=== PATIENT | female | born 1975 | race Caucasian/White ===

== ENCOUNTER 2018-12-05 01:32 | Inpatient (IN) | payer MEDICAID ==
[~2018-12-05] VITALS: Ht 165.1 cm; Wt 115.7 kg
--- NOTE | 2018-12-05 01:44 | NUR ---
Patient being evaluated by physician at bedside.
[2018-12-05] MEDS ORDERED: NACL 0.9% 2,000 ML IV SCH (01:47)
[2018-12-05 01:51] VITALS: BP 145/85
[2018-12-05] MEDS ORDERED: VANCOMYCIN 1,000 MG in DEXTROSE 5% 250 ML IV ONE (02:00)
[2018-12-05 02:05] LABS: HEMATOCRIT 38.4 % (36-48); HEMOGLOBIN 12.7 g/dL (12.0-16.0); MEAN CORPUSCULAR HEMOGLOBIN 26 pg (27-31); MEAN CORPUSCULAR HGB CONC 33 g/dL (33-37); MEAN CORPUSCULAR VOLUME 79.5 fL (80-94); PLATELET COUNT (AUTO) 423 K/uL (140-450); RED BLOOD CELL COUNT(AUTO) 4.83 MIL/uL (4.20-5.40); RED CELL DISTRIBUTION WIDTH 14.3 % (11.6-13.7)
[2018-12-05 02:18] LABS: EOSINOPHILS % (MANUAL) 1 % (0-4); LYMPHOCYTES % (MANUAL) 9 % (20-46); MONOCYTES % (MANUAL) 4 % (5-12); WHITE BLOOD COUNT (AUTO) 19.6 K/uL (4.8-10.8)
[2018-12-05] MEDS ORDERED: VANCOMYCIN 1,000 MG VIAL ONE ×2 (02:18→04:57)
[2018-12-05 02:24] LABS: PROTHROMBIN TIME 10.2 secs (10.8-13.4)
--- NOTE | 2018-12-05 02:24 | NUR ---
PT TO ED WITH C/O L SIDED FACIAL PAIN/TINGLING. PT DENIES INJURY OR TRAUMA. LARGE AMOUNT OF SWELLING NOTED TO L SIDE OF FACE. PT DENIES CP/SOB. PT PLACED INTO BED, PENDING MD GARY.
[2018-12-05 02:32] LABS: ALBUMIN 3.2 g/dL (3.4-5.0); ANION GAP 14.4 (8-16); CARBON DIOXIDE 24.8 mmol/L (21-32); POTASSIUM 3.2 mmol/L (3.5-5.1); TOTAL BILIRUBIN 0.8 mg/dL (0.0-1.0)
[2018-12-05] MEDS ORDERED: NACL 0.9% 1,000 ML IV SCH (02:52)
[2018-12-05] MEDS ORDERED: KETOROLAC 30 MG/ML VIAL IVP ONE (02:55)
[2018-12-05] MEDS ORDERED: MORPHINE SULFATE 2 MG/ML SYR IVP PRN (02:55)
[2018-12-05] MEDS ORDERED: ONDANSETRON 4 MG/2 ML VIAL IM/IVP PRN (02:55)
[2018-12-05] MEDS ORDERED: HYDROcodone/APAP 7.5/325 MG 1 TAB PO PRN (02:55)
[2018-12-05] MEDS ORDERED: DOCUSATE SODIUM 100 MG GELCAP PO PRN (02:55)
--- NOTE | 2018-12-05 03:23 | NUR ---
PT BACK FROM CT
[2018-12-05 03:24] LABS: CHOL/HDL RATIO 3.4 (1-4.5); MAGNESIUM 1.8 mg/dL (1.8-2.4); PHOSPHORUS 2.4 mg/dL (2.5-4.9); THYROID STIMULATING HORMONE 0.94 uIU/mL (0.34-3.74)
--- NOTE | 2018-12-05 03:33 | NUR ---
PT WAS UNABLE TO URINATE DUE TO URINATING PRIOR TO ER VISIT. RN TO GIVE REPORT TO ENTRY LEVEL ADMINISTRATIVE ASSISTANT TO COLLECT ON UNIT. ER MD MADE AWARE
[2018-12-05] MEDS ORDERED: VANCOMYCIN PER PHARMACY MC PRN (03:35)
--- NOTE | 2018-12-05 03:37 | NUR ---
Patient will be admitted to care of DR TENA. Admited to TELE. Will go to room 106-A. Belongings list completed. Report to ROBERT KRAUSE.
[2018-12-05 03:45] VITALS: BP 156/88
[2018-12-05] MEDS ORDERED: KCL 20 MEQ/WATER INJ PREMIX 100 ML IV SCH (03:45)
--- NOTE | 2018-12-05 03:45 | NUR ---
REPORT RECEIVED FROM ED NURSE AT BEDSIDE. PT IN STABLE CONDITION. AAOX4. INTRODUCED SELF TO PT AND FAMILY. BOARD UPDATED. NO COMPLAINTS OF PAIN. NO SOB. AFEBRILE. IV SITE L AC 20G RUNNING D5NS@120ML/HR PATENT AND INTACT. SKIN WARM, DRY, AND INTACT WITH NO OPEN WOUNDS. PT IS AMBULATORY. BED LOCKED IN LOW POSITION. CALL OSEGUERA WITHIN REACH. SAFETY PRECAUTIONS IN PLACE. ALL NEEDS MET AT THIS TIME.
[2018-12-05] MEDS ORDERED: KETOROLAC 15 MG/ML VIAL IVP PRN (04:10)
[2018-12-05] MEDS: DEXT 5% /NACL 0.9% 1,000 ML IV SCH ×2 (04:22→11:55)
[2018-12-05] MEDS ORDERED: VANCOMYCIN HCL 750 MG in DEXTROSE 5% 250 ML IV SCH (04:30)
--- NOTE | 2018-12-05 04:56 | NUR ---
ERVIN RHODES AND RUNNING. PT TOLERATING WELL.
--- NOTE | 2018-12-05 05:15 | NUR ---
RADIOLOGY CALLED IN TO INFORM ME THAT THE CXR IS NEGATIVE.
--- NOTE | 2018-12-05 06:26 | NUR ---
MJ RHODES AND RUNNING. PT TOLERATING WELL.
[2018-12-05] MEDS ORDERED: cefTRIAXone 1,000 MG VIAL ONE (06:32)
[2018-12-05] MEDS ORDERED: POTASSIUM CHLORIDE 40 MEQ, LIDOCAINE MPF 1% - 5 mL VIAL 25 MG in NACL 0.9% 250 ML IV ONE (07:00)
--- NOTE | 2018-12-05 07:20 | NUR ---
REPORT GIVEN TO AM NURSE AT BEDSIDE. PT IN STABLE CONDITION.
--- NOTE | 2018-12-05 07:25 | NUR ---
RECEIVED PT FROM PLODDING OPERATOR NURSEJIMI, PT IS AWAKE AND ALERT AND IS LYING ON THE BED WITH SIDE RAILS UP AND CALL LIGHT WITHIN REACH, PT IS NOT A FALL RISK, BED ALARM CHECKED, PT HAS AN IV LINE ON THE LEFT AC G.20 WITH D5NS INFUSING AT 120ML/HR, INTACT. PT HAS A LEFT FACIAL ABSCESS NOTED, SKIN WAS ASSESSED, TENDER, WARM AND RED, PT DENIES ANY PAIN AT THIS TIME AND NO SOB NOTED. WILL CONTINUE TO MONITOR PT.
[2018-12-05 08:00] VITALS: BP 151/89
--- NOTE | 2018-12-05 08:00 | NUR ---
PATIENT HAS BEEN SCREENED AND CATEGORIZED HIGH NUTRITION RISK. PATIENT WILL BE SEEN WITHIN 1-2 DAYS OF ADMISSION. 12/05/18-12/06/[address]
--- NOTE | 2018-12-05 08:10 | NUR ---
PT IS AWAKE AND SEATED ON THE BED, VITAL SIGNS CHECKED AND IS WITHIN NORMAL LIMIT, TEMPERATURE IS 98.8 AND SHOWS NO FEVER. NO SIGN OF DISTRESS NOTED AND WILL CONTINUE TO MONITOR PT.
[2018-12-05] MEDS: LACTOBACILLUS RHAMNOSUS GG 1 EACH CAP PO SCH (08:52)
--- NOTE | 2018-12-05 08:55 | NUR ---
PT IS AWAKE, SEATED ON THE BED WITH FATHER ON THE BEDSIDE, PT'S K LEVEL IS 3.2 AND POTASSIUM RIDER WAS GIVEN VIA IVPB. WILL MONITOR PT.
[2018-12-05 10:10] LABS: APPEARANCE,URINE CLEAR (CLEAR); BILIRUBIN,URINE NEGATIVE (NEGATIVE); BLOOD, URINE 1+ (NEGATIVE); COLOR,URINE YELLOW (YELLOW); LEUKOCYTE ESTERASE ,URINE NEGATIVE (NEGATIVE); NITRITE, URINE NEGATIVE (NEGATIVE); PH,URINE 6.5 (5.0-9.0); UGLUCOSE NEGATIVE (NEGATIVE)
--- NOTE | 2018-12-05 10:15 | NUR ---
PT IS AWAKE AND SEATED ON THE BED WATCHING TV, FATHER ON THE BEDSIDE, PT DENIES PAIN AND NO SIGN OF DISTRESS NOTED. WILL MONITOR PT.
[2018-12-05 10:18] LABS: BARBITURATE, URINE NEG. ng/ml (NEG <=200); BENZODIAZEPINE, URINE NEG. ng/mL (NEG <=200); CANNABINOID, URINE NEG. ng/mL (NEG <=50); COCAINE, URINE NEG. ng/mL (NEG <=300); OPIATE, URINE NEG. ng/mL (NEG <=2000); PHENCYCLIDINE SCREEN,URINE NEG. ng/mL (NEG <=25)
[2018-12-05 10:37] LABS: RBC,URINE 0-5 /HPF (0-5); WBC,URINE 0-5 /HPF (0-5)
--- NOTE | 2018-12-05 10:55 | NUR ---
CONSENT FOR CT OF THE NECK WITH CONTRAST WAS SIGNED BY PT AND WITNESSED BY RN. PT IS AWARE OF THE PROCEDURE TO BE DONE AND THE REASON FOR IT. WILL AFFIX SIGNATURE.
[2018-12-05 12:00] VITALS: BP 130/82
[2018-12-05] MEDS: VANCOMYCIN HCL 1,250 MG in DEXTROSE 5% 250 ML IV SCH ×2 (13:12→21:09)
--- NOTE | 2018-12-05 13:12 | NUR ---
PT IS AWAKE AND ALERT AND SEATED ON THE BED, MEDICATION WAS GIVEN VIA IVPB AND PT TOLERATED IT. WILL MONITOR PT.
--- NOTE | 2018-12-05 15:55 | NUR ---
12/05/18 RD INITIAL ASSESSMENT COMPLETED PLEASE REFER TO NUTRITION ASSESSMENT UNDER CARE ACTIVITY FOR ESTIMATED NUTRITIONAL NEEDS. 1. CONTINUE NPO MEDICALLY NECESSARY 2. WHEN PATIENT IS MEDICALLY STABLE CONSIDER ADVANCING TO A SOFT CARDIAC DIET 3. RD PROVIDED LOWERING CHOLESTEROL NUTRITION EDUCATION. PT ACCEPTED 4. RD TO FOLLOW-UP 3-5 DAYS, MODERATE RISK CHERRIE NOONAN RD
[2018-12-05 16:00] VITALS: BP 122/60
--- NOTE | 2018-12-05 16:15 | NUR ---
PT IS AWAKE AND SEATED ON THE BED, WATCHING TV, VITAL SIGNS TAKEN AND BP IS 122/60, PT PULSE IS TACHYCARDIC AT A RATE OF 140, RESPIRATION IS 18/MIN, TEMP IS 100.1 ON ORAL AND O2 SATURATION AT 99% PT DENIES PAIN AND VERBALIZED NOT FEELING WARM OR HAVING A FEVER AT THIS TIME. WILL MONITOR PT.
[2018-12-05] MEDS ORDERED: POTASSIUM CHLORIDE 10 MEQ TABER PO SCH (17:30)
[2018-12-05] MEDS ORDERED: SODIUM PHOS / POTASSIUM PHOS 1 PKT PDR PO SCH (17:30)
--- NOTE | 2018-12-05 18:00 | NUR ---
SPOKE TO DR. KAUFMAN AND ASKED MD IF PT WILL BE KEPT NPO AND DR. KAUFMAN SAID THAT SHE WILL PLACE AN ORDER FOR A DIET FOR THE PT AND CALLED THE MD ATTENTION ABOUT THE ORDER OF 40MEQ K-DUR FOR THE PT SCHEDULED FOR 1729 AND TOLD THE MD THAT PT WAS GIVEN K- RIDER EARLIER VIA IVPB, DR. KAUFMAN SAID TO NOT GIVE THE K-DUR TABLETS AND SHE WILL CANCEL THE ORDER. ACKNOWLEDGED AND WILL CARRY OUT ORDER.
--- NOTE | 2018-12-05 18:31 | NUR ---
PT IS AWAKE AND DINNER TRAY WAS SERVED, ORAL MEDICATION WAS GIVEN AND PT TOLERATED IT, NO SIGN OF DISTRESS NOTED AND WILL CONTINUE TO MONITOR PT.
[2018-12-05] MEDS ORDERED: INSULIN LISPRO SLIDING SCALE 100 UNITS/ML VIAL SUBQ PRN (18:50)
[2018-12-05] MEDS ORDERED: DEXTROSE 50% 50 ML SYR IVP PRN (18:50)
--- NOTE | 2018-12-05 19:00 | NUR ---
PT'S HEART RATE IS 142 IN THE RISK MANAGEMENT DIRECTOR, WENT TO PT'S ROOM AND PT IS SEATED ON THE BED WATCHING TV, PT DENIES ANY UNTOWARD SYMPTOM, DENIES SOS AND DENIES PAIN, INFORMED DR. ESPITIA ABOUT IT AND MD SAID THAT HE WILL PLACE AN ORDER FOR EKG.
--- NOTE | 2018-12-05 19:15 | NUR ---
ENDORSED PT TO SPONGE PRESS OPERATOR NURSEJASE FOR CONTINUITY OF CARE. PT IS STABLE AT THIS TIME.
--- NOTE | 2018-12-05 19:16 | NUR ---
RECEIVED BEDSIDE REPORT FROM GIFTY JONES. PT IS AAO X 4. FATHER AT BEDSIDE. PT ON ROOM AIR. NO S/S OF DISTRESS. DX FACIAL ABSCESS. LEFT CHEEK VISUALLY SWOLLEN AND RED EXTENDED TO NECK. PT STATES SHE HAD AN EAR INFECTION THEN STARTED TO HAVE PAIN IN CHEEK. PT IS AMBULATORY STEADY GAIT. IV ON LAC 20G IVF D5NS AT 120 INFUSING WELL. PT TO BE NPO AFTER MIDNIGHT FOR POSSIBLE I&D. PLAN OF CARE DISCUSSED. PT VERBALIZED UNDERSTANDING. CALL LIGHT WITHIN REACH.
[2018-12-05 20:00] VITALS: BP 135/79
[2018-12-05 20:33] LABS: BASOPHILS % (AUTO) 0.2 % (0.0-2.0); HEMATOCRIT 34.3 % (36-48); HEMOGLOBIN 11.2 g/dL (12.0-16.0); LYMPHOCYTES # (AUTO) 1.1 K/uL (2.5-16.5); MEAN CORPUSCULAR HEMOGLOBIN 26 pg (27-31); MEAN CORPUSCULAR HGB CONC 33 g/dL (33-37); MEAN CORPUSCULAR VOLUME 80.1 fL (80-94); MONOCYTES # (AUTO) 1.2 K/uL (0.8-1.0); MONOCYTES % (AUTO) 7.6 % (1.7-9.3); NEUTROPHILS # (AUTO) 13.9 K/uL (1.8-7.7); NEUTROPHILS % (AUTO) 85.2 % (42.2-75.2); PLATELET COUNT (AUTO) 344 K/uL (140-450); RED BLOOD CELL COUNT(AUTO) 4.28 MIL/uL (4.20-5.40); WHITE BLOOD COUNT (AUTO) 16.3 K/uL (4.8-10.8)
--- NOTE | 2018-12-05 20:40 | NUR ---
LAB UNABLE TO VERIFY MEFOXIN D/T PT ALLERGY TO PCN. DR ESPITIA MADE AWARE. NO NEW ORDERS.
[2018-12-05 20:53] LABS: ANION GAP 14.5 (8-16); CARBON DIOXIDE 23.3 mmol/L (21-32); CREATININE 0.8 mg/dL (0.6-1.3); POTASSIUM 3.8 mmol/L (3.5-5.1)
[2018-12-05] MEDS: BLOOD GLUCOSE MONITORING 1 DEV DEV FS SCH (21:08)
--- NOTE | 2018-12-05 21:09 | NUR ---
VITAL SIGNS ARE STABLE PT ST 138 B/P 135/79. DR IS AWARE. PT DENIES PAIN AT THIS TIME. DUE MEDICATION GIVEN. BLOOD SUGAR 156. PT STATES NON DIABETIC. WILL NOT GIVE INSULIN PT TO BE NPO AFTER MIDNIGHT. WILL RECHECK BLOOD SUGAR IN THE MORNING. ALL NEEDS MET AT HIS TIME. WILL CONTINUE TO MONITOR.
[2018-12-06] VITALS: BP 141/81
[2018-12-06] MEDS: ACETAMINOPHEN 325 MG TAB PO PRN ×3 (00:41→21:30)
[2018-12-06] MEDS: DEXT 5% /NACL 0.9% 1,000 ML IV SCH ×3 (00:41→12:55)
--- NOTE | 2018-12-06 00:41 | NUR ---
PT WITH TEMP 100.8 TYLENOL ADMINISTERED. PT REMAINS ST. HEART RATE 135 SHE IS ASYMPTOMATIC. B/P 141/81. CALL LIGHT WITHIN REACH. WILL CONTINUE TO MONITOR
[2018-12-06 04:00] VITALS: BP 113/56
--- NOTE | 2018-12-06 04:05 | NUR ---
VITAL SIGNS ARE STABLE. PT HEART RATE 125 IS ASYMPTOMATIC. VANCO TROUGH DRAWN. CALL LIGHT WITHIN REACH.
[2018-12-06 04:30] LABS: ANION GAP 14.4 (8-16); CARBON DIOXIDE 25.1 mmol/L (21-32); CREATININE 0.8 mg/dL (0.6-1.3); POTASSIUM 3.5 mmol/L (3.5-5.1)
[2018-12-06 04:33] LABS: MAGNESIUM 1.7 mg/dL (1.8-2.4); PHOSPHORUS 3.4 mg/dL (2.5-4.9)
[2018-12-06] MEDS: VANCOMYCIN HCL 1,250 MG in DEXTROSE 5% 250 ML IV SCH ×3 (04:58→21:22)
--- NOTE | 2018-12-06 04:58 | NUR ---
PT RESTING COMFORTABLY IN BED. VANCO INFUSING PER ORDERS. VANCO TROUGH WAS 9.6. ALL NEEDS MET AT THIS TIME WILL CONTINUE TO MONITOR.
[2018-12-06] MEDS: BLOOD GLUCOSE MONITORING 1 DEV DEV FS SCH ×4 (05:07→21:41)
[2018-12-06 06:34] LABS: BASOPHILS # (AUTO) 0.1 K/uL (0.00-0.22); BASOPHILS % (AUTO) 0.4 % (0.0-2.0); EOSINOPHILS % (AUTO) 0.1 % (0.0-4.0); HEMATOCRIT 33.6 % (36-48); HEMOGLOBIN 10.9 g/dL (12.0-16.0); LYMPHOCYTES # (AUTO) 1.9 K/uL (2.5-16.5); LYMPHOCYTES % (AUTO) 11.5 % (20.5-51.1); MEAN CORPUSCULAR HEMOGLOBIN 26 pg (27-31); MEAN CORPUSCULAR HGB CONC 32 g/dL (33-37); MEAN CORPUSCULAR VOLUME 80.4 fL (80-94); MONOCYTES # (AUTO) 1.3 K/uL (0.8-1.0); MONOCYTES % (AUTO) 7.6 % (1.7-9.3); NEUTROPHILS # (AUTO) 13.3 K/uL (1.8-7.7); NEUTROPHILS % (AUTO) 80.4 % (42.2-75.2); PLATELET COUNT (AUTO) 334 K/uL (140-450); RED BLOOD CELL COUNT(AUTO) 4.18 MIL/uL (4.20-5.40); RED CELL DISTRIBUTION WIDTH 13.9 % (11.6-13.7); WHITE BLOOD COUNT (AUTO) 16.5 K/uL (4.8-10.8)
--- NOTE | 2018-12-06 07:22 | NUR ---
GAVE BEDSIDE REPORT TO DAY SHIFT RN. PT ENDORSED IN STABLE CONDITION.
--- NOTE | 2018-12-06 07:23 | NUR ---
RECEIVED BEDSIDE REPORT FROM ROBERT CLINE. PATIENT ON TELE MONITOR AND STANDARD PRECAUTIONS IN PLACE PATIENT AAOX4. PATIENT ON ROOM AIR, NO DISTRESS NOTED. AMBULATORY AND CONTINENT. IV ON L AC 20 G INFUSING D5 NS AT 120, IV ASYMPTOMATIC PATENT AND INTACT. SKIN INTACT. BED IN LOW POSITION, CALL LIGHT WITHIN REACH, SIDE RAILS X 2 UP. WILL CONTINUE TO MONITOR.
[2018-12-06 08:00] VITALS: BP 161/90
[2018-12-06] MEDS: LACTOBACILLUS RHAMNOSUS GG 1 EACH CAP PO SCH (08:19)
--- NOTE | 2018-12-06 08:22 | NUR ---
FATHER AT BEDSIDE. ADMINISTERED SCHEDULED MEDS. WILL CONTINUE TO MONITOR.
--- NOTE | 2018-12-06 10:00 | NUR ---
PATIENT WATCHING TV. NO DISTRESS NOTED, ON ROOM AIR. WILL CONTINUE TO MONITOR.
[2018-12-06 12:00] VITALS: BP 144/86
--- NOTE | 2018-12-06 12:49 | NUR ---
ADMINISTERED SCHEDULED MEDS. PATIENT TOLERATED WELL. WILL CONTINUE TO MONITOR.
--- NOTE | 2018-12-06 13:00 | NUR ---
L AC 20 G IV LEAKING. REMOVED IV. WILL ATTEMPT ANOTHER IV.
--- NOTE | 2018-12-06 13:44 | NUR ---
NEW IV ON R HAND 22 G, ASYMPTOMATIC PATENT AND INTACT
[2018-12-06] MEDS ORDERED: NACL 0.45% 1,000 ML IV SCH ×2 (14:35→18:45)
[2018-12-06] MEDS ORDERED: DEXT 5% / NACL 0.45% 1,000 ML IV SCH (14:50)
[2018-12-06] MEDS ORDERED: MAGNESIUM OXIDE 400 MG TAB PO SCH (15:00)
--- NOTE | 2018-12-06 15:14 | NUR ---
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
[2018-12-06 16:00] VITALS: BP 130/79
--- NOTE | 2018-12-06 16:50 | NUR ---
PATIENT WATCHING TV WITH FATHER AT BEDSIDE. NO DISTRESS NOTED. WILL CONTINUE TO MONITOR.
--- NOTE | 2018-12-06 19:23 | NUR ---
PHONE CALL RECEIVED FROM NICHOLAS FROM [facility] REGARDING PATIENTS TRANSFER. STATED PATIENT WILL NOT BE ABLE TO BE TRANSFERRED TONIGHT BECAUSE THERE ARE NO BEDS. SHE STATED SHE WILL SEE AGAIN TOMORROW AROUND 9 AM. NICHOLAS' CALL BACK NUMBER IS [phone]. STEM ASSEMBLER NURSE AWARE.
--- NOTE | 2018-12-06 19:25 | NUR ---
GAVE BEDSIDE REPORT TO ROBERT LR. PATIENT ENDORSED IN STABLE CONDITION.
--- NOTE | 2018-12-06 19:26 | NUR ---
RECEIVED REPORT FROM DAY SHIFT NURSE. AAOX4. NO C/O PAIN OR SOB. ON ROOM AIR. SKIN INTACT. PT'S LEFT FACE SWOLLEN. IV TO RIGHT HAND #22G, PATENT AND INTACT. DISCUSSED PLAN OF CARE, PT'S VERBALIZED UNDERSTANDING. SAFETY PRECAUTION IN PLACE. CALL LIGHT WITHIN REACH.
[2018-12-06 20:00] VITALS: BP 112/72
--- NOTE | 2018-12-06 21:00 | NUR ---
DR. WONG CAME IN TO SEE PT. PT IN BED. NO C/O PAIN AT THIS TIME.
[2018-12-06] MEDS: DEXT 5% / NACL 0.45% 1,000 ML IV SCH (21:41)
--- NOTE | 2018-12-06 22:40 | NUR ---
DR. ESPITIA MADE AWARE THAT PT'S LEFT FACE DRAINING MINIMAL AMOUNT OF YELLOWISH FLUIDS. MADE AWARE ALSO OF PT'S HEART RATE 140'S. MD TO SEE PT.
--- NOTE | 2018-12-06 22:50 | NUR ---
DR. ESPITIA IN THE ROOM TO SEE PT. DRAINED SOME YELLOWISH FLUIDS ON PT'S LEFT FACE AND ORDERED CULTURE. DRESSING APPLIED ON LEFT FACE.
[2018-12-07] VITALS: BP 120/84
--- NOTE | 2018-12-07 01:15 | NUR ---
PT SLEEPING BUT WAKES EASILY. RESP EVEN AND UNLABORED. NO S/S OF PAIN.
--- NOTE | 2018-12-07 03:00 | NUR ---
PT SLEEPING. NO S/S OF PAIN. NO S/S OF RESP DISTRESS.
[2018-12-07 04:00] VITALS: BP 129/78
[2018-12-07] MEDS: VANCOMYCIN HCL 1,250 MG in DEXTROSE 5% 250 ML IV SCH ×2 (04:28→13:49)
[2018-12-07] MEDS: DEXT 5% / NACL 0.45% 1,000 ML IV SCH ×2 (05:57→14:10)
--- NOTE | 2018-12-07 06:00 | NUR ---
PT'S BLOOD SUGAR 158. ORDERED TO HOLD INSULIN, PT IS NPO.
[2018-12-07] MEDS: BLOOD GLUCOSE MONITORING 1 DEV DEV FS SCH ×3 (06:50→16:30)
--- NOTE | 2018-12-07 07:05 | NUR ---
ENDORSED PT TO DAY SHIFT NURSE. PT IN STABLE CONDITION.
--- NOTE | 2018-12-07 07:10 | NUR ---
RECEIVED PT FROM SECURITY TRAINER NURSE, ADELINE, PT IS AWAKE AND SEATED ON THE BED WITH SIDE RAILS UP AND CALL LIGHT WITHIN REACH, PT DENIES PAIN AND NO SOB NOTED. PT HAS AN IV LINE ON TH RT AC G.22 WITH IV ANTIBIOTIC, MEFOXIN INFUSING. NO SIGN OF DISTRESS NOTED AN WILL CONTINUE TO MONITOR PT.
[2018-12-07 08:00] VITALS: BP 146/80
[2018-12-07 09:33] LABS: BASOPHILS # (AUTO) 0.1 K/uL (0.00-0.22); BASOPHILS % (AUTO) 0.6 % (0.0-2.0); EOSINOPHILS % (AUTO) 0.2 % (0.0-4.0); HEMATOCRIT 32.7 % (36-48); HEMOGLOBIN 10.7 g/dL (12.0-16.0); LYMPHOCYTES # (AUTO) 1.5 K/uL (2.5-16.5); LYMPHOCYTES % (AUTO) 8.8 % (20.5-51.1); MEAN CORPUSCULAR HEMOGLOBIN 26 pg (27-31); MEAN CORPUSCULAR HGB CONC 33 g/dL (33-37); MEAN CORPUSCULAR VOLUME 79.5 fL (80-94); MONOCYTES # (AUTO) 0.9 K/uL (0.8-1.0); MONOCYTES % (AUTO) 5.3 % (1.7-9.3); NEUTROPHILS # (AUTO) 14.9 K/uL (1.8-7.7); NEUTROPHILS % (AUTO) 85.1 % (42.2-75.2); PLATELET COUNT (AUTO) 330 K/uL (140-450); RED BLOOD CELL COUNT(AUTO) 4.12 MIL/uL (4.20-5.40); WHITE BLOOD COUNT (AUTO) 17.5 K/uL (4.8-10.8)
[2018-12-07] MEDS: LACTOBACILLUS RHAMNOSUS GG 1 EACH CAP PO SCH (10:06)
--- NOTE | 2018-12-07 10:09 | NUR ---
PT IS AWAKE AND SEATED ON THE BED WATCHING TV, PT DENIES PAIN AT THIS TIME, DRESSING ON THE FACIAL ABSCESS INTACT, V/S CHECKED AND IS WITHIN NORMAL LIMIT, ORAL MEDICATION GIVEN, PT VERBALIZED HAVING 2 LOOSE STOOLS. NO SIGN OF DISTRESS NOTED AND WILL CONTINUE TO MONITOR PT.
[2018-12-07 10:11] LABS: CARBON DIOXIDE 25.1 mmol/L (21-32); CREATININE 0.7 mg/dL (0.6-1.3); POTASSIUM 3.1 mmol/L (3.5-5.1)
[2018-12-07 10:16] LABS: MAGNESIUM 1.9 mg/dL (1.8-2.4)
--- NOTE | 2018-12-07 10:24 | NUR ---
CALLED DR. KAUFMAN AND REPORTED THE PT'S K LEVEL OF 3.1, ACKNOWLEDGED AND AWAITING FOR ORDER .
[2018-12-07] MEDS ORDERED: POTASSIUM CHLORIDE 40 MEQ, LIDOCAINE 1% 25 MG in NACL 0.9% 250 ML IV SCH (11:00)
[2018-12-07] MEDS: ACETAMINOPHEN 325 MG TAB PO PRN (11:05)
--- NOTE | 2018-12-07 11:06 | NUR ---
PT IS AWAKE AND WATCHING TV, VERBALIZED A PIN RATE OF 5/10, DR. KAUFMAN ORDERED TO GIVE TYLENOL FOR THE PAIN AND PT AGREED, IV MEDICATION WAS GIVEN AND PT TOLERATED IT. WILL MONITOR PT.
[2018-12-07 12:00] VITALS: BP 122/77
--- NOTE | 2018-12-07 12:03 | NUR ---
PT IS AWAKE AND SEATED ON THE BED, VITAL SIGNS CHECKED AND IS WITHIN NORMAL LIMIT, POTASSIUM RIDER WAS STARTED FOR A K LEVEL OF 3.1. WILL MONITOR PT.
--- NOTE | 2018-12-07 13:03 | NUR ---
SEEN BY DR. JENKINS AND DISCUSSED THE PLAN OF CARE, VERBALIZED UNDERSTANDING. DR. JENKINS SPOKE TO THE FORGING ROLL OPERATOR DYLLAN AND MADE AWARE REGARDING TRANSFER PATIENT TO [facility], DR. JENKINS WILL BE THE ACCEPTING MD.
--- NOTE | 2018-12-07 13:15 | NUR ---
Called Neri from [facility] transfer center , informed her that Dr. Correa already saw the patient and he wants patient transferred to [facility]. Per Neri still no bed available at this time. Neri will call us once bed is available.
[2018-12-07] MEDS ORDERED: [UNRECOGNIZED DRUG - CODE] IV (14:45)
[2018-12-07] MEDS ORDERED: LACT10CA1 PO (14:45)
[2018-12-07] MEDS ORDERED: VANC1PLA9 IV (14:45)
--- NOTE | 2018-12-07 15:53 | NUR ---
Neri from [facility] informed me the patient is going to room number 581 B. Nurses station number .
[2018-12-07 16:00] VITALS: BP 135/85
--- NOTE | 2018-12-07 16:07 | NUR ---
Transportation arranged with [facility] pt will be picked up at 1800 from room 106 A and transported to [facility] room 581 B, [address] Nurses station phone [phone]. Renuka Joe RN and De. Malena JONES.
--- NOTE | 2018-12-07 18:44 | NUR ---
CALLED [facility] AND GAVE REPORT TO ROBERT WILSON AND GAVE REPORT REGARDING THE PT, PT WILL BE UNDER THE SERVICE OF DR. JENKINS, AND WILL BE PLACE IN [facility]-A.
--- NOTE | 2018-12-07 19:05 | NUR ---
DISCHARGED PT WITH [facility] PERSONNEL WITH THE FATHER OF THE PT, IV LINE AND ARM BANDS REMOVED, PT IS STABLE AT THIS TIME.
--- NOTE | 2018-12-11 08:09 | NUR ---
Late entry. Confirmed with RN that 2000 ml 0.9 NS IV was ended when patient transferred to the floor at 0337 as was the Vancomycin.
== END 2018-12-07 19:05 | disposition short-term general hospital (02) | DRG 720 ==
LOC: MED 01:32 → MTU 02:55
PROVIDERS: ADMIT General Practice; ATTEND General Practice
DX: A41.9 Sepsis, unspecified organism (principal); E44.1 Mild protein-calorie malnutrition; E87.1 Hypo-osmolality and hyponatremia; E66.01 Morbid (severe) obesity due to excess calories; E83.42 Hypomagnesemia; Z68.41 Body mass index [BMI] 40.0-44.9, adult; E87.6 Hypokalemia; K11.3 Abscess of salivary gland; L02.01 Cutaneous abscess of face; Z71.3 Dietary counseling and surveillance; Z88.0 Allergy status to penicillin; Z80.49 Family history of malignant neoplasm of other genital organs; Z82.49 Family history of ischemic heart disease and other diseases of the circulatory system
CPT/HCPCS: 36415; 70486; 70487; 70491; 71045; 80048; 80053; 80202; 80305; 81001; 82948; 83036; 83605; 83735; 84100; 84443; 85025; 85610; 85730; 87040; 87070; 87081; 87086; 87186; 93005; 99285; J0694; J0696; J1815; J1885; J2001; J3370; J3480; J7030; J7042; J7060; Q9967